=== PATIENT | male | born 1965 | race African-American/Black ===

== ENCOUNTER 2017-03-13 16:41 | Emergency (ER) | payer SELFPAY ==
[~2017-03-13] VITALS: Ht 182.9 cm; Wt 153.0 kg
[2017-03-14] MEDS ORDERED: MAGNESIUM/ALUMINUM HYDROXIDE/SIMETHICONE 30ML UDC PO STA (00:36)
[2017-03-14] MEDS ORDERED: SODIUM CHLORIDE 0.9% 1,000 ML IV ONE (00:36)
[2017-03-14] MEDS ORDERED: METOCLOPRAMIDE HCL 10MG/2ML VIAL IV STA (00:36)
[2017-03-14] MEDS ORDERED: VISCOUS LIDOCAINE 2% 15 ML UDC PO STA (00:36)
[2017-03-14] MEDS ORDERED: MORPHINE SULFATE 4 MG/ML CPJ (NOT FOR IM USE) IV STA (00:36)
[2017-03-14 00:50] LABS: BASOPHILS % 0.4 % (0.0-2.0); EOSINOPHILS % 2.2 % (0.0-5.0); HEMATOCRIT. 41.7 % (42.0-52.0); HEMOGLOBIN. 13.9 g/dL (14.0-18.0); LYMPHOCYTES % 40.5 % (20.0-50.0); MEAN CORPUSCULAR HEMOGLOBIN 29.7 pg (28.0-32.0); MEAN CORPUSCULAR VOLUME 88.9 fL (80.0-94.0); MEAN PLATELET VOLUME 6.7 fl (7.4-10.4); MONOCYTES % 7.9 % (2.0-8.0); PLATELET 237 x1000/uL (130-400); RED BLOOD CELL COUNT 4.69 mill/uL (4.7-6.1); RED CELL DISTRIBUTION WIDTH 13.4 % (11.6-14.6)
[2017-03-14 00:56] LABS: CHLORIDE 107 mEq/L (98-107)
[2017-03-14 00:57] LABS: PROTHROMBIN TIME 10.7 sec (9.4-11.6)
[2017-03-14 01:06] LABS: CARBON DIOXIDE 29 mEq/L (21-32)
[2017-03-14 01:46] VITALS: BP 126/75
== END 2017-03-14 01:48 | disposition home or self-care (01) ==
LOC: ER 21:15
DX: K42.9 Umbilical hernia without obstruction or gangrene (principal); Z88.6 Allergy status to analgesic agent; Z98.890 Other specified postprocedural states
CPT/HCPCS: 36415; 80053; 83690; 85025; 85610; 96361; 96374; 96375; 99284; J2270; J2765; J7030; Z7610